=== PATIENT | female | born 1970 | race Caucasian/White ===

== ENCOUNTER 2016-12-28 18:02 | Emergency (ER) | payer OTHER ==
[2016-12-28 18:52] VITALS: BP 120/74; PULSE 93; TEMP 98.4; BMI 30.6
[2016-12-28] MEDS ORDERED: OXYCODONE/APAP 5/325MG COMBO TABLET PO ONE (19:09)
[2016-12-28] MEDS ORDERED: OXYCODONE/APAP 5/325MG COMBO TABLET ONE (19:12)
--- NOTE | 2016-12-28 19:18 | PDOC ---
History of Present Illness - General Chief Complaint: Pain, Acute Stated Complaint: RT ARM PAIN Time Seen by Provider: 12/28/16 19:08 History Source: Patient Exam Limitations: No Limitations - History of Present Illness Initial Comments: 12/28/16 19:11 46 year old female presents the ED status post rotator cuff repair 1 month ago now complaining of tightness and pain with movement of her arm. Patient states symptoms have not worsened but have not improved and is concerned of why her symptoms remained patient states has an appointment this upcoming with her surgeon but the entrance she came to the ER for further medical evaluation. Patient states has been taking Motrin with minimal affect. Patient denies sensory changes distally, radiation of pain, bruising, or increased swelling. Patient denies history of clotting disorders or recent injury. Timing/Duration: constant Severity: moderate Associated Symptoms: reports: denies symptoms Past History - Past Medical History Allergies/Adverse Reactions: Allergies Allergy/AdvReac Type Severity Reaction Status Date / Time Penicillins Allergy Rash Verified 12/28/16 18:36 Home Medications: Ambulatory Orders NK [No Known Home Medication] 12/28/16 - Immunization History Immunization Up to Date: Yes - Psycho/Social/Smoking Cessation Hx Anxiety: No Suicidal Ideation: No Smoking History: Smoker current status UNK Have you smoked in the past 12 months: No Number of Cigarettes Smoked Daily: 5 Information on smoking cessation initiated: No 'Breaking Loose' booklet given: 03/04/16 Hx Alcohol Use: No Drug/Substance Use Hx: No Substance Use Type: None Patient Lives Alone: No Review of Systems - Review of Systems Able to Perform ROS?: Yes Constitutional: No: Symptoms Reported Respiratory: No: Symptoms reported Cardiac (ROS): No: Symptoms Reported ABD/GI: No: Symptoms Reported Musculoskeletal: Yes: Joint Pain (rt shoulder region). No: Joint Swelling, Muscle Weakness Integumentary: No: Symptoms Reported Neurological: No: Symptoms reported Endocrine: No: Symptoms Reported *Physical Exam - Vital Signs Last Vital Signs Temp Pulse Resp BP Pulse Ox 98.4 F 93 H 16 120/74 100 12/28/16 18:33 12/28/16 18:33 12/28/16 18:33 12/28/16 18:33 12/28/16 18:33 - Physical Exam General Appearance: Yes: Nourished, Appropriately Dressed. No: Apparent Distress HEENT: negative: Pale Conjunctivae Neck: positive: Supple Respiratory/Chest: positive: Lungs Clear, Normal Breath Sounds. negative: Respiratory Distress, Accessory Muscle Use Cardiovascular: positive: Regular Rhythm, Regular Rate. negative: Murmur Extremity: positive: Normal Capillary Refill, Tender (generalized shoulder region and upper bicep). negative: Normal Range of Motion Integumentary: positive: Ecchymosis (mild generalized to right shoulder region) Neurologic: positive: Normal Mood/Affect, Motor Strength 5/5 (right hand grasp) ED Treatment Course - RADIOLOGY Radiology Studies Ordered: Category Date Time Status DUPLEX VASCUL US-1 ARM [US] Stat Ultrasound 12/28/16 19:09 Ordered Medical Decision Making - Medical Decision Making 12/28/16 19:16 Patient status post rotator cuff repair approximately one month ago complaining of continual pain and swelling to the area. Patient on exam had limited range of motion with lateral raise, and flexion of the elbow. Patient concerning for DVT secondary to complaints. Patient ordered for duplex and given 1 dose of Percocet. Patient has follow-up with her orthopedist this upcoming 12/28/16 20:11 Ultrasound negative for DVT. Patient be sent home with Percocet and recommendations to keep her appointment this week with her orthopedist. Patient states pain was resolved with Percocet 12/28/16 20:12 *DC/Admit/Observation/Transfer Diagnosis at time of Disposition: Right shoulder pain Qualifiers: Chronicity: acute Qualified Code(s): M25.511 - Pain in right shoulder - Discharge Dispostion Disposition: HOME Condition at time of disposition: Good - Referrals Referrals: Sunny Murillo MD [Primary Care Provider] - - Patient Instructions Printed Discharge Instructions: DI for Shoulder Pain, DI for Rotator Cuff Repair Additional Instructions: Your DVT study was negative for clot. I do recommend that you rest since her you follow up with the orthopedist and take Percocet as prescribed. You may also apply ice at this time to the area to help some of the inflammation.
== END 2016-12-28 20:18 | disposition home or self-care (01) ==
LOC: JERFT 18:02 → JER 18:02 → JERFT 20:18
DX: M25.511 Pain in right shoulder (principal)
CPT/HCPCS: 93971; 99281-25